=== PATIENT | male | born 1995 | race African-American/Black ===

== ENCOUNTER 2019-08-27 21:52 | Emergency (ER) | payer OTHER ==
[~2019-08-27] VITALS: Ht 175.3 cm; Wt 61.7 kg
[2019-08-27 22:06] VITALS: Ht 175.3 cm; Wt 61.7 kg
[2019-08-28 02:08] VITALS: BP 111/42
== END 2019-08-28 02:09 | disposition home or self-care (01) ==
LOC: ED 21:52
DX: S06.0X1A Concussion with loss of consciousness of 30 minutes or less, initial encounter (principal); V19.9XXA Pedal cyclist (driver) (passenger) injured in unspecified traffic accident, initial encounter; Y93.I9 Activity, other involving external motion; Y92.413 State road as the place of occurrence of the external cause; Y99.8 Other external cause status

== ENCOUNTER 2020-07-06 21:53 | Emergency (ER) | payer OTHER ==
[~2020-07-06] VITALS: Ht 175.3 cm; Wt 58.5 kg
[2020-07-06 22:08] VITALS: Ht 175.3 cm; Wt 58.5 kg
[2020-07-06 22:59] VITALS: BP 124/98
== END 2020-07-06 22:59 | disposition home or self-care (01) ==
LOC: ED 21:53
DX: S16.1XXA Strain of muscle, fascia and tendon at neck level, initial encounter (principal); W22.8XXA Striking against or struck by other objects, initial encounter; Y93.89 Activity, other specified; Y92.89 Other specified places as the place of occurrence of the external cause; Y99.8 Other external cause status
CPT/HCPCS: J1885